=== PATIENT | female | born 1950 | race Caucasian/White ===

== ENCOUNTER 2022-04-12 14:27 | Outpatient (CLI) | payer MEDICARE, BC, SELFPAY ==
[2022-04-12 17:38] LABS: Cholesterol* 229 mg/dL (90-199); HDL Cholesterol* 98 mg/dL (>=50); LDL Cholesterol Calculated 111 mg/dL (<100); Triglycerides* 102 mg/dL (40-149)
== END 2022-04-12 14:28 | disposition home or self-care (01) ==
LOC: NFLDREF 14:33
PROVIDERS: PCP Internal Medicine; Visit Provider Internal Medicine
DX: Z00.00 Encounter for general adult medical examination without abnormal findings (principal); E78.5 Hyperlipidemia, unspecified; K21.9 Gastro-esophageal reflux disease without esophagitis
CPT/HCPCS: 80061

== ENCOUNTER 2022-05-20 20:43 | Emergency (ER) | payer MEDICARE, BC, SELFPAY ==
[2022-05-20 20:52] VITALS: BP 144/95; PULSE 89; RESP 18; TEMP 36.9; O2SAT 98; BMI 27.4
--- NOTE | 2022-05-20 20:59 | ED.EYEPROB ---
HPI - Eye Problem General Time Seen by Provider: 20:59 Date Seen: 05/20/22 Chief complaint: Eye Problems Stated complaint: Blurred vision Time Seen by Provider: 05/20/22 20:49 Source: patient and RN notes reviewed Mode of arrival: ambulatory Limitations: no limitations History of Present Illness HPI Narrative: Patient is a very pleasant 71-year-old female with a history of hyperlipidemia who comes to the emergency room for evaluation of left eye blurriness. Patient had the onset of blurriness mainly central approximately 45 minutes prior to arrival. This was not associated with any injury that she knows of. She was sitting at the time. This is never happened to her in the past. She denies eye discomfort irritation, double vision or headache. She has no history of clotting disorders or history of stroke. She states she feels like there is a film in front of the IP she notes that she was seeing halos around lights on the way to the emergency room. She states that at this time her vision has improved somewhat and is approximately 25% better. She denies a headache or neck pain. Related Data Home Medications Medication Instructions Recorded Confirmed cephalexin 250 mg capsule 250 mg PO Q6H 05/20/22 05/20/22 Previous Rx's Medication Instructions Recorded atorvastatin 20 mg tablet 20 mg PO QPM #90 tabs 04/12/22 omeprazole 20 mg capsule,delayed 20 mg PO QDAY #90 caps 04/12/22 release Allergies Allergy/AdvReac Type Severity Reaction Status Date / Time Penicillins Allergy Severe Hives Verified 05/20/22 20:57 Review of Systems Status of ROS: Reports: 10 or more systems reviewed and unremarkable except as noted in History and below Narrative: We no elicited symptoms of jaw claudication Const: Denies: fever or chills Eyes: Reports: blurry vision (Central); Denies: blind spots, light sensitivity or eye discharge ENMT: Denies: throat pain or neck pain Resp: Denies: cough GI: Denies: vomiting Musculo: Denies: neck pain Neuro: Denies: headache or numbness in extremities PFSH [facility] Medical History History of esophageal stricture Surgical History History of 2 sections History of appendectomy History of esophageal dilatation (09/21/16) Family History Aunt Colon cancer Father Diabetes Coronary artery disease High blood pressure Brother Coronary artery disease Mother Dementia Social History Smoking Status: Never smoker How often do you have a drink containing alcohol: 2-3 times a week AUDIT-C Alcohol total score: 3 Non-prescribed substance use: denies use Little interest or pleasure in doing things: not at all Feeling down, depressed, or hopeless: not at all Exam Const: Vital Signs, click to edit/add: Vital Signs - 24 hr 05/20/22 20:52 Temperature 98.5 F Pulse Rate [Right Pulse Oximeter] 89 Respiratory Rate 18 Blood Pressure [Le ft Upper Arm] 144/95 H Pulse Oximetry 98 Oxygen Delivery Me thod Room Air Documenting provider has reviewed patient's vital signs: yes Common normals: no apparent distress, average body habitus, oriented x3, no limitations, healthy appearing, alert and well nourished General appearance: cooperative, comfortable and well kempt HENMT: Common normals: normocephalic, external ears normal and external nose normal Head and scalp: normocephalic Face and sinus: normal facial exam and face symmetric Nose: external nose normal External ear: external ears normal Mouth: lip normal Other: I did not elicit any tenderness with palpation over temporal artery. Eye: Common normals: PERRL, EOMs intact bilaterally, conjunctivae normal and no papilledema General eye: normal light reflex and other (Slight discoloration left iris at approximately 7 o'clock position) Visual acuity: acuity normal; no near vision loss and no complete vision loss Visual briggs: no peripheral vision loss, no left visual field cut and no right visual field cut Alignment: alignment normal Periorbital: periorbital findings normal Eyelid: eyelids normal Conjunctiva: conjunctiva(e) normal Sclera: sclerae normal Cornea: corneas normal Pupil: PERRL Direct Ophthalmoscopy: normal light reflex, no papilledema and anterior chamber normal; no photophobia Slit lamp exam: slit lamp exam performed with fluorescein Other: Patient with no discomfort with EOM director consensual light pupillary constriction. Initially noted slight area on the left inner rim of the iris with some discoloration. Initially thought this was a variation of her normal brown eyes. However, under slit-lamp examination she has an area extending from the 7 o'clock to 8 o'clock position on the inner rim of the iris and extending to approximately 1/3 of the thickness of the iris that is red appears to be blood that is coagulated. There is no pooling in the anterior chamber the anterior chamber is clear. Fundi appears benign. Neck & C-Spine: Common normals: full ROM Resp: Common normals: normal respiratory effort Effort & inspection: able to speak in complete sentences Neuro: Common normals: oriented x3 Sensorium/orientation: alert Psych: Appearance: well kempt Course Vital Signs Vital signs: Initial Vital Signs Temperature 98.5 F 05/20/22 20:52 Temperature Source Temporal Artery Scan 05/20/22 20:52 Pulse Rate 89 05/20/22 20:52 Respiratory Rate 18 05/20/22 20:52 Blood Pressure 144/95 H 05/20/22 20:52 Blood Pressure Mean 111 05/20/22 20:52 Blood Pressure Position Sitting 05/20/22 20:52 Pulse Oximetry 98 05/20/22 20:52 Oxygen Delivery Method 05/20/22 20:52 Vital Signs Temperature 98.5 F 05/20/22 20:52 Pulse Rate 89 05/20/22 20:52 Respiratory Rate 18 05/20/22 20:52 Blood Pressure 144/95 H 05/20/22 20:52 Pulse Oximetry 98 05/20/22 20:52 Oxygen Delivery Method 05/20/22 20:52 Temperature 98.5 F 05/20/22 20:52 Pulse Rate 89 05/20/22 20:52 Respiratory Rate 18 05/20/22 20:52 Blood Pressure 144/95 H 05/20/22 20:52 Pulse Oximetry 98 05/20/22 20:52 Oxygen Delivery Method 05/20/22 20:52 MDM - Eye Problem MDM Narrative Medical decision making narrative: 1. Hemorrhage of the iris-is a very small area of hemorrhage of the iris. Initially I thought this was just variation of the iris color the under slit lamp this appears to be a small hemorrhage. No evidence of anterior chamber cloudiness or floaters. Retina to the best of my ability does not appear to have any compromise. During patient's time here she had complete resolution of her symptoms. Initially 25% better upon arrival than 50% better upon examination and finally now prior to discharge she has had resolution of all of her symptoms with no halos no blurriness. Her peripheral vision remained intact. There is no sign of stroke with movement of her extremities mentation present. I did have the pleasure of speaking to Dr. Read, material damage adjuster. He does suggest patient's sleep at the head of her bed elevated and do her best to avoid any sudden increase in pressure of such as sneezing, coughing or lifting heavy objects. Patient will follow-up with him tomorrow for recheck. Her cousin is a long time [place] registered veterinary technician and she may also choose to follow up with him. At this time resolution of symptoms. Patient will be discharged home. 2. Disposition-patient goes home with her daughter. Also recommended no use of aspirin or NSAIDs. Of course for worsening symptoms return to the emergency room for further evaluation. Discharge Plan Discharge Clinical Impression: Hemorrhage of iris Patient Disposition: Home, Self-Care Condition: Improved Additional Instructions: Recommend sleeping with head of bed elevated. Avoid hard coughing, blowing nose or bending over. Follow up with Dr. Hernandez or Dr read tomorrow for recheck [phone]. Let the asphalt distributor tender know that you were seen in the ED and Dr. Trevino knows about you. Return/ Seek medical attention for worsening symptoms Prescriptions: No Action atorvastatin 20 mg tablet 20 mg PO QPM Qty: 90 3RF omeprazole 20 mg capsule,delayed release(DR/EC) 20 mg PO QDAY Qty: 90 3RF cephalexin 250 mg capsule 250 mg PO Q6H Label Comments: TAKE 1 CAPSULE EVERY 6 HOURS UNTIL GONE Follow Up/Referrals: Enedelia Yu MD [Primary Care Provider] - Stand Alone Forms: [employer] Info Instructions
== END 2022-05-20 22:25 | disposition home or self-care (01) ==
PROVIDERS: Emergency Provider Family Medicine; PCP Internal Medicine
DX: H11.32 Conjunctival hemorrhage, left eye (principal)
CPT/HCPCS: 99283; 99284; A9270

== ENCOUNTER 2022-06-16 13:00 | Outpatient (CLI) | payer MEDICARE, BC, SELFPAY ==
--- NOTE | 2022-06-16 13:20 | CRLHL7_ITS ---
For Patients: As a result of the Century Cures Act, medical imaging exams and procedure reports are released immediately into your electronic medical record. You may view this report before your referring provider. If you have questions, please contact your health care provider. BILATERAL SCREENING MAMMOGRAM WITH COMPUTER-AIDED DETECTION AND TOMOSYNTHESIS TECHNIQUE: CC and MLO views were obtained. These mammographic images have been obtained using full-field digital technique. These mammographic images were interpreted with the benefit of computer-aided detection. Breast Tomosynthesis was used in this interpretation. COMPARISON FILM: No priors available. Baseline. FINDINGS: There are scattered areas of fibroglandular density IMPRESSION: There is no radiographic evidence for malignancy. ASSESSMENT: BI-RADS Category 1: Negative RECOMMENDATION: Routine screening mammogram in 1 year. A lay language report of this examination will be provided to the patient. Nikolas Tamez M.D. Diagnostic/Nuclear Medicine Radiologist [email or web address] [place]/Dictated by: Nikolas Tamez MD @ 07/01/2022 6:56:00 AM (Electronically Signed)
--- NOTE | 2022-06-16 14:00 | CRLHL7_ITS ---
For Patients: As a result of the Century Cures Act, medical imaging exams and procedure reports are released immediately into your electronic medical record. You may view this report before your referring provider. If you have questions, please contact your health care provider. DXA BONE MINERAL DENSITY STUDY Current height (in): 62.0. Weight (lb): 149.0. Menopause age: 47. Ethnicity: White. Reason for exam: Screening. 1. Have you had a previous hip or vertebral fracture? No. 2. Have you had any fractures during your adult life which did not result from significant trauma (e.g., auto accident)? No. 3. Did either of your parents have a hip fracture? No. 4. Do you smoke? No. 5. Have you ever taken Glucocorticoids? No. 6. Do you have rheumatoid arthritis? Yes. 7. Do you have secondary osteoporosis? No. 8. Do you drink 3 or more alcoholic drinks per day? No. 9. Are you being treated for osteoporosis? No. 10. Have you ever taken any of the following medications: Actonel, Evista, Fosamax, Miacalcin, Reclast, Boniva, Forteo, HRT (i.e. estrogen/hormone therapy), Protelos, Prolia, Vitamin D, Calcium, other ??? please specify. ANSWER: No. 11. Do you have any of the following medical conditions: Anorexia or bulimia, asthma or emphysema, end stage renal disease, hyperparathyroidism, any seizure disorders, cancer, inflammatory bowel diseases, hysterectomy, other ??? please specify. ANSWER: No. 12. What was your maximum height (inches)? 63. 13. Do you perform weight bearing exercise regularly? Yes. 14. Do you regularly consume dairy products? Yes. 15. Do you drink caffeinated beverages? Yes. If female: 16. At what age did your period start? 14. 17. Are you premenopausal? No. 18. How many full term pregnancies have you had? 2. 19. Have you ever missed your period for more than 6 months in a row (not including or menopause)? No. TECHNIQUE: Bone mineral density study was performed using the [employer]. FINDINGS: The results of the study expressed as bone mineral density (BMD) are as follows: Lumbar spine L1 to L2: BMD: 1/065 g/cm2. T-score: 0.8. Z-score: 2.8. Neck Left: BMD: 0.857 g/cm2. T-score: 0.1. Z-score: 1.9. Right: BMD: 0.872 g/cm2. T-score: 0.2. Z-score: 2.0. Total Left: BMD: 1.081 g/cm2. T-score: 1.1. Z-score: 2.6. Right: BMD: 1.108 g/cm2. T-score: 1.4. Z-score: 2.9. IMPRESSION: Normal bone density. Isaac Lacy M.D. Diagnostic Radiologist [email or web address] Transcribed: 9:52 a.m. DW/Dictated by: Isaac Lacy MD @ 06/17/2022 9:20:00 AM (Electronically Signed)
== END 2022-06-16 13:01 | disposition home or self-care (01) ==
LOC: MAMMO 13:01
PROVIDERS: PCP Internal Medicine; Visit Provider Internal Medicine
DX: Z12.31 Encounter for screening mammogram for malignant neoplasm of breast (principal); Z13.820 Encounter for screening for osteoporosis; Z78.0 Asymptomatic menopausal state
CPT/HCPCS: 77063; 77067; 77080

== ENCOUNTER 2023-04-07 14:14 | Outpatient (CLI) | payer MEDICARE, BC, SELFPAY | END 2023-04-07 14:15 | disposition home or self-care (01) | LOC: NFLDREF 14:20 | PROVIDERS: PCP Internal Medicine; Visit Provider Internal Medicine | DX: E78.5 Hyperlipidemia, unspecified (principal) | CPT/HCPCS: 80061 ==

== ENCOUNTER 2023-04-15 10:03 | Outpatient (CLI) | payer MEDICARE, BC, SELFPAY ==
--- NOTE | 2023-04-15 10:53 | W.ANESCHARGE ---
Anesthesia Charges Start Date/Time Anesthesia Start Date: 04/15/23 Anesthesia Start Time: 10:32 Stop Date/Time Anesthesia Stop Date: 04/15/23 Anesthesia Stop Time: 10:52
== END 2023-04-15 10:04 | disposition home or self-care (01) ==
LOC: OP CLINIC 10:04
PROVIDERS: PCP Internal Medicine; Visit Provider Internal Medicine
DX: R12 Heartburn (principal)
CPT/HCPCS: 00731; 43239; 88305; J2704

== ENCOUNTER 2024-04-09 07:40 | Outpatient (CLI) | payer MEDICARE, BC, SELFPAY | END 2024-04-09 07:41 | disposition home or self-care (01) | LOC: NFLDREF 10:53 | PROVIDERS: PCP Internal Medicine; Referring Provider Internal Medicine; Visit Provider Internal Medicine | DX: E78.5 Hyperlipidemia, unspecified (principal) | CPT/HCPCS: 80061 ==

== ENCOUNTER 2024-05-14 09:47 | Outpatient (CLI) | payer MEDICARE, BC, SELFPAY ==
--- NOTE | 2024-05-14 09:45 | CRLHL7_ITS ---
For Patients: As a result of the Century Cures Act, medical imaging exams and procedure reports are released immediately into your electronic medical record. You may view this report before your referring provider. If you have questions, please contact your health care provider. BILATERAL SCREENING MAMMOGRAM WITH COMPUTER-AIDED DETECTION AND TOMOSYNTHESIS TECHNIQUE: CC and MLO views were obtained. These mammographic images have been obtained using full-field digital technique. These mammographic images were interpreted with the benefit of computer-aided detection. Breast Tomosynthesis was used in this interpretation. COMPARISON FILM: 06/16/22, 12/18/20, 06/30/18. FINDINGS: There are scattered areas of fibroglandular density IMPRESSION: There is no radiographic evidence for malignancy. ASSESSMENT: BI-RADS Category 1: Negative RECOMMENDATION: Routine screening mammogram in 1 year. A lay language report of this examination will be provided to the patient. Isaac Lacy M.D. Diagnostic Radiologist [email or web address] [place]/Dictated by: Isaac Lacy MD @ 05/22/2024 12:04:00 PM (Electronically Signed)
== END 2024-05-14 09:48 | disposition home or self-care (01) ==
LOC: MAMMO 09:47
PROVIDERS: PCP Internal Medicine; Visit Provider Internal Medicine
DX: Z12.31 Encounter for screening mammogram for malignant neoplasm of breast (principal)
CPT/HCPCS: 77063; 77067

== ENCOUNTER 2025-04-11 08:37 | Outpatient (CLI) | payer MEDICARE, BC, SELFPAY | END 2025-04-11 08:38 | disposition home or self-care (01) | LOC: NFLDREF 04-16 12:20 | PROVIDERS: PCP Internal Medicine; Referring Provider Internal Medicine; Visit Provider Internal Medicine | DX: E78.5 Hyperlipidemia, unspecified (principal) | CPT/HCPCS: 80061 ==

== ENCOUNTER 2025-05-31 14:57 | Outpatient (CLI) | payer MEDICARE, BC, SELFPAY ==
--- NOTE | 2025-05-31 15:20 | CRLHL7_ITS ---
For Patients: As a result of the Century Cures Act, medical imaging exams and procedure reports are released immediately into your electronic medical record. You may view this report before your referring provider. If you have questions, please contact your health care provider. INDICATION: BILATERAL SCREENING MAMMOGRAM, ASYMPTOMATIC 74 Y/O FEMALE COMPARISON: 05/14/2024, 06/16/2022, 12/18/2020 TECHNIQUE: Digital mammogram in CC and MLO projections including computer-aided detection (CAD) and tomosynthesis. BREAST COMPOSITION: There are scattered areas of fibroglandular density. FINDINGS: No suspicious findings. ASSESSMENT: BI-RADS 1 Negative RECOMMENDATION: Annual screening mammogram. A lay language report of this examination will be provided to the patient. Dictated by: Ramona Abdullahi MD @ 06/03/2025 21:09:07 (Electronically Signed)
== END 2025-05-31 14:58 | disposition home or self-care (01) ==
LOC: MAMMO 14:58
PROVIDERS: PCP Internal Medicine; Visit Provider Internal Medicine
DX: Z12.31 Encounter for screening mammogram for malignant neoplasm of breast (principal)
CPT/HCPCS: 77063; 77067